=== PATIENT | female | born 1980 | race Caucasian/White ===

== ENCOUNTER 2021-07-13 01:59 | Day surgery (SDC) | payer BC, OTHER, SELFPAY ==
[2021-07-12 13:58] VITALS: BMI 26.6
--- NOTE | 2021-07-12 13:59 | PC.NURSE ---
Report to the Outpatient Waiting Room, entrance under the green pavilion located off [facility], at time _1100 on date __07/13/21 . OR Time: 1314___. - You and your visitor will be asked a series of questions to screen for COVID 19 for your protection. - A mask is required within the hospital. Preoperative COVID Testing Requirements: No COVID Test needed if: (proof is required; if not received patient will have Rapid Test prior to entry) - Patient has received COVID Vaccine at least 14 days prior to procedure date or - Patient has positive COVID test result within last 90 days of surgery date. COVID Test needed if above criteria is not met If not COVID vaccinated a COVID test must be conducted within 72 hours of surgery and patient is asked to isolate self from time of testing until procedure. You will go to the [facility] for your COVID testing. The [facility] site is located at the corner of [address] from [facility]. You will only be called if COVID results are positive and your surgeon may reschedule your elective surgery date. Patients may have clear liquids (water, carbonated beverages, clear teas, apple juice) until 3 hours prior to surgery with a maximum of 20 ounces. - No food from midnight until time of surgery - Infants may have breast milk until 4 hours before surgery, infant formula 6 hours prior to surgery. - Children will be allowed to drink immediately following surgery. If applicable, please bring a bottle or sippy cup to assist with drinking. Juice, water, soda, and popsicles are readily available. For infants on formula, please bring formula the day of surgery. Pacifiers are allowed. Take the following medications with a SIP of water the morning of surgery: LEVOTHYROXINE__ Medications to discontinue per physician __NONE__ Date to take last dose Please no make-up, nail estonian, hairspray, perfume, deodorant, or body powder the day of surgery. No jewelry (including any body piercings) or valuables the day of surgery, leave them at home. Please take a shower or bath the night before, or the morning of, surgery with an antibacterial soap. Wear comfortable, loose fitting clothing. Children are encouraged to wear pajamas. - Jewelry must be removed prior to entering the operating room. Rings and piercings that are not removed may be cut off. - The hospital will not accept responsibility for valuables. - Please leave all valuables, including medications, at home the day of surgery. If you are going home after surgery, a licensed front load trash truck driver must drive you home. - NO public transportation without another adult. - We recommend that an adult stay with you for 24 hours following discharge. - We also recommend that you do not drive, make important decision, drink alcoholic beverages, or take any drugs that were not prescribed by your health care provider for at least 24 hours after your discharge time. For Pediatric surgeries, we recommend two adults accompany the child home (only one inside the building at this time). One visitor will be allowed to accompany the patient into the hospital. Patients visitor will be instructed to remain with patient at all times or leave the building. We will allow the visitor to come back to the postoperative area when patient is ready. Follow any additional instructions given to you from your surgeon. Telephone instructions given to __PATIENT and asked if any additional questions and then verbalized understanding. Patient advised to call surgeon office or pre surgery nurse liaison [phone] if any additional questions.
--- NOTE | 2021-07-13 06:52 | PM.IMHP ---
H&P: HPI History of Present Illness Date/Time: 07/13/21 06:52 40-year-old female with first-trimester missed A/B. She has had serial ultrasound which has shown no growth consistent with pending a be. She is offered watchful waiting versus suction D&C in opted for the latter. Risks and benefits were reviewed in great detail Chief Complaint: First trimester missed A/B Review of Systems Review of Systems: All systems reviewed & are unremarkable except as noted in HPI and below PMFSH Social History Social History Tobacco type: e-cigarettes/vaping Additional smoking assessment comments: VAPES TWICE A DAY FOR 2 YEARS Alcohol intake: former Substance use type: marijuana Other substance usage details: 1 TWICE A WEEK Living arrangements: with family Meds Home Medications and Allergies Home Medications Medication Instructions Recorded Confirmed Type galcanezumab-gnlm [Emgality Pen] 120 mg SUBCUT MONTHLY 07/12/21 07/12/21 History levothyroxine 25 mcg PO DAILY 07/12/21 07/12/21 History Allergies Allergy/AdvReac Type Severity Reaction Status Date / Time No Known Allergies Allergy Verified 07/12/21 13:49 Exam Const: General: no acute distress Eyes: General: appearance normal, both eyes and all related structures Neck: Neck: supple and no JVD Thyroid: thyroid normal Resp: Effort & Inspection: normal respiratory effort Auscultation: clear to auscultation bilaterally Cardio: Rate: regular rate Rhythm: regular rhythm GI: Inspection: non-distended GI Palp: Yes Soft to palpation, No Tenderness to palpation present (GI) and No Guarding due to palpation present (GI) Auscultation: normal bowel sounds : Speculum Exam - Vagina: normal appearance of the vagina Speculum Exam - Cervix: normal appearance of the cervix Bimanual exam- vagina & uterus: enlarged Bimanual Exam- Adnexa, other: normal adnexae Skin: General skin exam: no rashes or lesions noted Extrem: General: normal to inspection and no edema Psych: Mental Status: mental status grossly normal Affect: normal affect Assessment and Plan Additional Plan Impression: 1st trimester missed A/B Plan: Suction dilatation curettage
--- NOTE | 2021-07-13 06:54 | WPDHPUPDATE1 ---
History and Physical Update Update Date/Time: 07/13/21 06:54 History and Physical has been reviewed, including an updated exam of the patient. There are NO changes in the patient's condition. Risks, benefits, and alternatives have been discussed and questions answered. Patient agrees to proceed with procedure.
[2021-07-13] MEDS: ACETAMINOPHEN 500 MG TABLET 1000 MG PO (12:10)
[2021-07-13] MEDS: LACTATED RINGERS 1,000 ML 30 ML IV CONT (12:15)
--- NOTE | 2021-07-13 12:26 | WPDANESEPPF ---
Anes - Initial Pre Proc Eval Procedure: Operation Date: 07/13/21 13:15 Proposed Procedures p Suction Dilation and Curettage - Brad Posadas MD Date/Time: 07/13/21 12:26 Surgeon: Brad Posadas MD Pre Op Diagnosis: missed ab Patient Data Age: 40 Gender: F Height: 1.68 m Weight: 75 kg Allergies Allergy/AdvReac Type Severity Reaction Status Date / Time No Known Allergies Allergy Verified 07/13/21 11:58 Home Medications Medication Instructions Recorded Confirmed Type galcanezumab-gnlm [Emgality Pen] 120 mg SUBCUT MONTHLY 07/12/21 07/12/21 History levothyroxine 25 mcg PO DAILY 07/12/21 07/12/21 History hydrocodone-acetaminophen 1 tablet PO Q6H PRN #14 tablet 07/13/21 Rx Patient hx anesthesia problems: none Family hx anesthesia problems: none Results Review: All pre-operative results and documents have been reviewed as part of the pre-operative evaluation. PMFSH Past Medical History Medical History Anxiety Hx of migraines Hypothyroid Social History Social History Tobacco type: e-cigarettes/vaping Additional smoking assessment comments: VAPES TWICE A DAY FOR 2 YEARS Alcohol intake: former Substance use type: marijuana Other substance usage details: 1 TWICE A WEEK Anes - Eval Final PreProcedure Day of Procedure 07/13/21 12:26 Patient weight: overweight Heart: regular rate and rhythm Lungs: clear to auscultation Airway: Mallampati scale class II Neurological: alert and oriented Last oral intake: >/= 8 hours ASA classification: II Emergent: no Anesthetic plan: proceed Anesthesia type and monitoring: general GIVS and standard monitoring Results Review: All pre-operative results and documents have been reviewed as part of the pre-operative evaluation. Informed Consent: The patient's anesthetic plan and its attendant risks and benefits were discussed with the patient/family/POA. Questions were solicited and answers provided to the satisfaction of the patient/family/POA.
[2021-07-13 12:27] VITALS: BP 113/60; PULSE 80; RESP 16; TEMP 37.1; O2SAT 100
[2021-07-13] MEDS: SCOPOLAMINE 1.5 MG PATCH TRANSDERM (12:31)
[2021-07-13 13:06] VITALS: BP 136/81; PULSE 70; RESP 16; O2SAT 100
--- NOTE | 2021-07-13 13:06 | W.PM.PROC2 ---
Procedure Note - Detailed Date of Procedure 07/13/21 Pre-op Diagnosis missed ab Post-op Diagnosis Same Procedure Performed The suction dilatation curettage Surgeon Brad Posadas MD Anesthesia MAC and Local Indications 1st trimester missed A/B Findings Tissue consistent with products of conception Description of Procedure The patient was prepped draped in the normal sterile fashion placed in dorsal lithotomy position. Under excellent IV sedation weighted speculum placed post fornix vagina. Anterior lip of the cervix grasped with single-tooth tenaculum. 2.5cc 1% xylocaine anesthesia placed at 2, 4, 8, 10:00 a.m. of the cervix. Uterus sounded to 10cm. Serial dilatation with fragmented dilators performed acute followed by passage of the 10. Suction curette removing a moderate to large amount of products of conception. When a good grating sound was heard no further tissue removed. Instruments removed and all accounted for. She went to recovery in satisfactory condition. All sponge, needle, instrument counts were correct. There were no immediate complications Estimated Blood Loss 25 Drains No Packing No Pathology Yes Complications No immediate complications Condition Stable Disposition PACU
[2021-07-13 13:30] VITALS: BP 126/73; PULSE 56; RESP 16
[2021-07-13] MEDS: oxyCODONE HCL (*CRX) 5 MG TAB IR PO (13:51)
[2021-07-13 14:00] VITALS: BP 114/67; PULSE 47; RESP 16
[2021-07-13 14:10] VITALS: BP 113/69; PULSE 46; RESP 16
== END 2021-07-13 14:35 | disposition home or self-care (01) ==
PROVIDERS: PCP Family Medicine; Visit Provider Obstetrics & Gynecology
PROC: (CPT 59820; principal; 2021-07-13 13:15)
DX: O02.1 Missed abortion (principal); E03.9 Hypothyroidism, unspecified; F17.290 Nicotine dependence, other tobacco product, uncomplicated; F12.90 Cannabis use, unspecified, uncomplicated; Z3A.00 Weeks of gestation of pregnancy not specified
CPT/HCPCS: 59820; 36415; 85461; 87426; 88305; A9270; C9803; J2250; J2270; J2704; J7120

== ENCOUNTER 2021-07-13 10:59 | Outpatient (CLI) | payer BC, OTHER, SELFPAY ==
[2021-07-13 11:42] LABS: EDCOVIDSCREEN Negative (Negative)
== END 2021-07-13 11:00 | disposition home or self-care (01) ==
LOC: ANHSURGERY 11:04
PROVIDERS: PCP Family Medicine; Visit Provider Obstetrics & Gynecology
DX: Z01.812 Encounter for preprocedural laboratory examination (principal); Z20.822 Contact with and (suspected) exposure to COVID-19
CPT/HCPCS: 87426; C9803